=== PATIENT | male | born 1960 | race Caucasian/White ===

== ENCOUNTER 2017-04-29 03:06 | Emergency (ER) | payer OTHER ==
[~2017-04-29] VITALS: Ht 172.7 cm; Wt 63.6 kg
[~2017-04-29 03:06] MED LIST: ALBU8HFA IH; ASPI-556 PO; AZEL137S2 NASAL; DDAV2 PO; FLUT1DIS3 IH; GABA-531 PO; LISI10TA7 PO; LORA1TAB3 PO; MONT10TA21 PO; MORP30 PO; MULT-1238 PO; OMEP20 PO; SIMV-259 PO; TIOT185 IH
[2017-04-29] MEDS ORDERED: ALLO300T2 PO (03:28)
[2017-04-29] MEDS ORDERED: OXYB5XL PO (03:28)
[2017-04-29] MEDS ORDERED: OMEP40CA12 PO (03:28)
[2017-04-29] MEDS ORDERED: ADV250 IH (03:28)
[2017-04-29] MEDS ORDERED: FLUO-126 PO (03:28)
[2017-04-29] MEDS ORDERED: SIMV20TA6 PO (03:28)
[2017-04-29] MEDS ORDERED: ASPI-1182 PO (03:28)
[2017-04-29] MEDS ORDERED: MONT10TA24 PO (03:28)
[2017-04-29] MEDS ORDERED: GABA-318 PO (03:28)
[2017-04-29] MEDS ORDERED: PRED5 PO (03:28)
[2017-04-29] MEDS ORDERED: RANI150T7 PO (03:28)
[2017-04-29] MEDS ORDERED: LORA1TAB3 PO (03:28)
[2017-04-29] MEDS ORDERED: MORP30TA71 PO (03:28)
[2017-04-29] MEDS ORDERED: ALBU8HFA IH (03:28)
[2017-04-29] MEDS ORDERED: LORazepam 2 MG TABLET PO ONE (04:00)
[2017-04-29 04:18] LABS: BASOPHILS % (AUTO) 0.6 % (0.0-2.0); EOSINOPHILS % (AUTO) 1.3 % (1.0-6.0); HEMATOCRIT 37.8 % (41-53); HEMOGLOBIN 12.9 g/dL (13.5-17.5); LYMPHOCYTES # (AUTO) 1.3 K/uL (1.0-4.8); LYMPHOCYTES % (AUTO) 16.1 % (22.0-44.0); MEAN CORPUSCULAR HEMOGLOBIN 29.8 pg (26.0-34.0); MEAN CORPUSCULAR VOLUME 88 fL (80-100); MONOCYTES # (AUTO) 0.6 K/uL (0.1-1.0); MONOCYTES % (AUTO) 7.7 % (2.0-9.0); NEUTROPHILS # (AUTO) 6.1 K/uL (1.8-7.7); NEUTROPHILS % (AUTO) 74.3 % (40.0-70.0); PLATELET COUNT (AUTO) 283 K/uL (150-450); RED BLOOD CELL COUNT(AUTO) 4.32 MIL/uL (4.50-5.90); RED CELL DISTRIBUTION WIDTH 12.5 % (11.5-14.5); WHITE BLOOD COUNT (AUTO) 8.3 K/uL (4.5-11.0)
[2017-04-29 04:29] LABS: ANION GAP 8 mmol/L (8-16); CALCIUM, TOTAL 8.5 mg/dL (8.8-10.5); CARBON DIOXIDE 24 mmol/L (22-29); CHLORIDE 96 mmol/L (98-107); GLOMERULAR FILTR. RATE CALC > 60 mL/min (>60); SODIUM SERUM 128 mmol/L (136-145); UREA NITROGEN, BLOOD 13 mg/dL (7-18)
[2017-04-29 04:35] LABS: ALANINE AMINOTRANSFERASE 42 U/L (12-78); ALBUMIN 3.9 g/dL (3.4-5.0); ASPARTATE AMINOTRANSFERASE 40 U/L (15-37); BILIRUBIN,TOTAL 0.4 mg/dL (0.1-1.0); TOTAL PROTEIN, SERUM 6.5 g/dL (6.4-8.2)
[2017-04-29 05:45] VITALS: BP 121/88
== END 2017-04-29 05:58 | disposition home or self-care (01) ==
LOC: EMS 03:08
DX: R19.7 Diarrhea, unspecified (principal); F41.9 Anxiety disorder, unspecified; E87.1 Hypo-osmolality and hyponatremia; J44.9 Chronic obstructive pulmonary disease, unspecified; I10 Essential (primary) hypertension; F17.210 Nicotine dependence, cigarettes, uncomplicated; Z79.82 Long term (current) use of aspirin; Z76.0 Encounter for issue of repeat prescription
CPT/HCPCS: 93005; 99285